=== PATIENT | female | born 1985 | race Caucasian/White ===

== ENCOUNTER 2018-10-10 02:35 | Emergency (ER) | payer SELFPAY ==
[~2018-10-10] VITALS: Ht 152.4 cm; Wt 52.2 kg
[2018-10-10 02:44] VITALS: Ht 152.4 cm; Wt 52.2 kg
[2018-10-10 05:14] VITALS: BP 108/68
== END 2018-10-10 05:15 | disposition home or self-care (01) ==
LOC: ED 02:35
DX: S00.12XA Contusion of left eyelid and periocular area, initial encounter (principal); S50.312A Abrasion of left elbow, initial encounter; S90.411A Abrasion, right great toe, initial encounter; Z88.0 Allergy status to penicillin; Y04.0XXA Assault by unarmed brawl or fight, initial encounter; Y93.89 Activity, other specified; Y92.89 Other specified places as the place of occurrence of the external cause; Y99.8 Other external cause status
CPT/HCPCS: 90715